=== PATIENT | male | born 1960 | race Caucasian/White ===

== ENCOUNTER 2025-06-09 08:12 | Day surgery (SDC) | payer MEDICAID, MEDICARE ==
[2025-06-09] MEDS ORDERED: Midazolam 1 MG/ML 2 ML SDV ONE (08:25)
[2025-06-09] MEDS ORDERED: Propofol 200 MG/20 ML SDV ONE ×2 (08:25→08:51)
[2025-06-09] MEDS ORDERED: fentaNYL 100 MCG/2 ML SDV ONE (08:25)
[2025-06-09] MEDS: Lactated Ringers 1,000 ML IV SCH (08:35)
== END 2025-06-09 10:15 | disposition home or self-care (01) ==
LOC: JP.SDS 08:12
PROVIDERS: ATTEND Surgery
DX: Z12.11 Encounter for screening for malignant neoplasm of colon (principal); K63.5 Polyp of colon; I10 Essential (primary) hypertension; E11.9 Type 2 diabetes mellitus without complications; E66.9 Obesity, unspecified; F17.200 Nicotine dependence, unspecified, uncomplicated
CPT/HCPCS: 00811; 45380; 88305; J2250; J2704; J3010; J7120